=== PATIENT | female | born 2000 | race Caucasian/White ===

== ENCOUNTER 2023-08-20 17:17 | Emergency (ER) | payer SELFPAY ==
[2023-08-20] MEDS ORDERED: HYDROcodone/Acetaminophen 5/325 mg Tablet ONE (17:39)
[2023-08-20] MEDS ORDERED: Ketorolac Tromethamine 30 MG (1 mL) VIAL ONE (17:39)
== END 2023-08-20 19:05 | disposition home or self-care (01) ==
LOC: ERS 17:17
DX: S82.851A Displaced trimalleolar fracture of right lower leg, initial encounter for closed fracture (principal); W09.8XXA Fall on or from other playground equipment, initial encounter; Y93.44 Activity, trampolining
CPT/HCPCS: 29405; 96372; J1885